=== PATIENT | female | born 1970 | race Caucasian/White ===

== ENCOUNTER 2019-06-04 12:38 | Outpatient (CLI) | payer BC ==
--- NOTE | 2019-06-04 13:19 | RAD ---
Lumbar spine: 2 views INDICATIONS:Lumbar radicular pain COMPARISON:None FINDINGS: Vertebral bodies maintain normal height. There is loss of disc space at L5-S1 with mild degenerative spurring at this level. Mild facet hypert rophy. Normal alignment is maintained. No evidence of spondylolisthesis. No osseous abnormality. No soft tissue abnormality. IMPRESSION: Loss of disc space at L5-S1 with mild degenerative changes.
--- NOTE | 2019-06-04 14:05 | MRI ---
MR the lumbar spine without contrast: 06/04/2019 History: Chronic back pain, coccygeal pain COMPARISON: None available TECHNIQUE: Multiplanar multisequence MR images were obtained of lumbar spine without IV contrast FINDINGS: On the basis of 5 lumbar type vertebral bodies, conus medullaris terminates at theL1-2 level. Sagittal STIR imaging demonstrates no focal area of osseous marrow edema. T12-L1:Intervertebral disc height and signal intensity appears within normal limits with no significa nt central canal or neural foraminal stenosis. L1-2:Intervertebral disc height and signal intensity within normal limits. No significant central can al or neural foraminal stenosis. L2-3:Intervertebral disc height and signal intensity is within normal limits. Mild bilateral facet hy pertrophy. No significant central canal or neural foraminal stenosis. L3-4:Intervertebral disc height and signal intensity appears within normal limits with no significant central canal or neural foraminal stenosis. L4-5:Bilateral facet hypertrophy. There is disc space narrowing with disc desiccation and mild disc b ulge. No significant central canal or neural foraminal stenosis. L5-S1:There is disc space narrowing with disc desiccation and disc bulge. Bilateral facet hypertrophy and hypertrophy of ligamentum flavum noted. Mild bilateral neural foraminal stenosis, right greater than left. No significant central canal stenosis. Image retroperitoneal structures demonstrateno acute findings.. IMPRESSION: Lower lumbar spine degenerative disc disease as detailed above.
== END 2019-06-04 12:39 | disposition home or self-care (01) ==
LOC: SCSMRI 12:38
PROVIDERS: ATTEND Family Medicine
DX: M51.16 Intervertebral disc disorders with radiculopathy, lumbar region (principal); M47.817 Spondylosis without myelopathy or radiculopathy, lumbosacral region
CPT/HCPCS: 72100; 72148